=== PATIENT | female | born 1980 | race Caucasian/White ===

== ENCOUNTER 2023-07-18 10:20 | Emergency (ER) | payer OTHER ==
[2023-07-18 10:26] VITALS: BP 114/53; PULSE 74; RESP 18; TEMP 99.9; BMI 25.2
[2023-07-18] MEDS ORDERED: AMOX TR/POT CLAV 875MG/125MG TABLETS (FP) ONE (11:02)
[2023-07-18] MEDS ORDERED: IBUPROFEN 600 MG TABLET (FP) PO ONE (11:02)
[2023-07-18] MEDS: AMOX TR/POT CLAV 500MG/125MG TABLETS (FP) PO ONE (11:04)
[2023-07-18] MEDS: IBUPROFEN 600 MG TABLET (FP) PO ONE (11:04)
[2023-07-18 11:37] LABS: THROAT:GRP A STREP NOT DETECTED (NOTDETECTED)
== END 2023-07-18 12:12 | disposition home or self-care (01) ==
LOC: JERFT 10:20 → JER 10:20 → JERFT 12:12
DX: R51.9 Headache, unspecified (principal); R09.81 Nasal congestion; R50.9 Fever, unspecified; R53.83 Other fatigue; J02.9 Acute pharyngitis, unspecified; J10.1 Influenza due to other identified influenza virus with other respiratory manifestations; J01.00 Acute maxillary sinusitis, unspecified; Z20.822 Contact with and (suspected) exposure to COVID-19
CPT/HCPCS: 0241U-QW; 87651; 99283-25